=== PATIENT | female | born 1935 | race Caucasian/White ===

== ENCOUNTER → 2018-01-19 | Outpatient (CLI) | payer MEDICARE, BC ==
[2016-06-27 12:50] VITALS: BP 112/78
[~2018-01-19] MED LIST: ARICEPT10 M1 PO; BENADRYL25 M3 PO; CALCIUM + D SO1 EACH PO; CENTRUM SILVER1 TA1 PO; COLESTIPOL1 GM PO; DIOVAN320 MG PO; LOW DOSE ASPIRI81 MG PO; PRILOSEC10 MG PO; SIMVASTATIN40 MG PO; TRAZODONE HCL50 MG PO; VIBRAMYCIN100 MG PO; WELLBUTRIN SR150 M2 PO; ZITHROMAX 250M250 MG PO; ZYRTEC10 MG PO
== END ==
LOC: RAD 17:53
DX: I08.3 Combined rheumatic disorders of mitral, aortic and tricuspid valves (principal); R93.1 Abnormal findings on diagnostic imaging of heart and coronary circulation

== ENCOUNTER → 2018-05-04 | Outpatient (CLI) | payer MEDICARE, BC ==
[2016-06-27 12:50] VITALS: BP 112/78
== END ==
LOC: RAD 08:55
DX: I77.810 Thoracic aortic ectasia (principal); J90 Pleural effusion, not elsewhere classified; R09.89 Other specified symptoms and signs involving the circulatory and respiratory systems; Z95.828 Presence of other vascular implants and grafts; Z98.890 Other specified postprocedural states; Z86.79 Personal history of other diseases of the circulatory system
CPT/HCPCS: Q9967

== ENCOUNTER → 2018-05-06 | Outpatient (CLI) | payer MEDICARE, BC ==
[2016-06-27 12:50] VITALS: BP 112/78
== END ==
LOC: CARDREHAB 10:02 → CARDLAB 15:00
DX: R06.02 Shortness of breath (principal); Z86.79 Personal history of other diseases of the circulatory system; Z82.49 Family history of ischemic heart disease and other diseases of the circulatory system
CPT/HCPCS: A9500

== ENCOUNTER → 2018-11-30 | Outpatient (CLI) | payer MEDICARE, BC ==
[2016-06-27 12:50] VITALS: BP 112/78
[2018-12-04 08:28] LABS: URINE APPEARANCE CLOUDY; URINE BILIRUBIN NEGATIVE (NEGATIVE); URINE BLOOD TRACE (NEGATIVE); URINE COLOR YELLOW; URINE GLUCOSE NEGATIVE (NEGATIVE); URINE KETONE NEGATIVE (NEGATIVE); URINE LEUKOCYTE ESTERASE TRACE (NEGATIVE); URINE MUCUS PRESENT (NOT PRESENT); URINE NITRATE POSITIVE (NEGATIVE); URINE PROTEIN(semi-quant) 1+ mg/dL (NEGATIVE); URINE UROBILINOGEN NORMAL (NORMAL)
== END ==
LOC: LAB 11:54
DX: N39.0 Urinary tract infection, site not specified (principal); B96.29 Other Escherichia coli [E. coli] as the cause of diseases classified elsewhere

== ENCOUNTER → 2020-12-03 | Outpatient (CLI) | payer MEDICARE, BC ==
[2016-06-27 12:50] VITALS: BP 112/78
[2020-12-03 17:30] LABS: URINE COLOR YELLOW
[2020-12-03 17:31] LABS: URINE APPEARANCE CLOUDY; URINE BILIRUBIN NEGATIVE (NEGATIVE); URINE BLOOD 50 ery/uL (NEGATIVE); URINE GLUCOSE NEGATIVE (NEGATIVE); URINE KETONE NEGATIVE (NEGATIVE); URINE LEUKOCYTE ESTERASE 2+ (NEGATIVE); URINE MUCUS PRESENT (NOT PRESENT); URINE NITRATE NEGATIVE (NEGATIVE); URINE PROTEIN(semi-quant) 2+ mg/dL (NEGATIVE); URINE UROBILINOGEN NORMAL (NORMAL); URINE WBC >50 /hpf (0-3)
== END ==
LOC: LAB 15:14
DX: N39.0 Urinary tract infection, site not specified (principal)